=== PATIENT | male | born 1975 | race Caucasian/White ===

== ENCOUNTER 2024-10-16 07:49 | Emergency (ER) | payer SELFPAY ==
--- OUTSIDE RECORDS SUMMARY | 2024-10-16 07:55 | XMS_ITS | Encounter Summary ---
Author Organization [facility] Address [address] [place] [address] Care Team Providers Care Charge Weigher Name Role Phone Non-Staff, Physician Primary Care Provider Unava ilable Encounter Details Date Type Department Care Team (Late st Contact Info) Description 12/28/2005 Outpatient Historical [facility] Urgent Care- Heladio Stevensnn [place] [address] [place] [phone] Azeem Jones, ASSET PROTECTION REPRESENTATIVE [address] [place] [address] Unspecified Backache (Primary Dx); Sprain Lumbar Region Social History Tobacco Use Types Packs/Day Years Used Date Smoking Tobacco: Never Assessed Sex and Gender Information Value Date Recorded Sex Assigned at Not on file Legal Sex Male 4:49 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 Gender Identity Not on file Sexual Orientation Not on file documented as of this encounter Plan of Treatment Not on file documented as of this encounter Visit Diagnoses Diagnosis Backache, unspecified- Primary Sprain lumbar region Sprain of lumbar region documented in this encounter Additional Health Concerns Infection Onset Date Last Indicated Resolved Time MRSA Comment:Wound 12/23/14 11/09/2014 11/09/2014 documented as of this encounter Care Teams Charge Weigher Relationship Specialty Start Date End Date Non-Staff, Physician NO ADDRESS ON FILE PCP - General 01/09/12 documented as of this encounter
--- OUTSIDE RECORDS SUMMARY | 2024-10-16 07:55 | XMS_ITS | Encounter Summary ---
Author Organization [facility] Address [address] [place] [address] Care Team Providers Care Linux System Admin Name Role Phone Non-Staff, Physician Primary Care Provider Unava ilable Encounter Details Date Type Department Care Team (Latest Contact Info) Description 03/29/2006 Outpatient Historical [facility] Care [address] [place] [address] Alex Perrin MD [address] [place] [address] Unspecified Synovitis and Tenosynovitis (Primary Dx) Social History Tobacco Use Types Packs/Day Years Used Date Smoking Tobacco: Never Assessed Sex and Gender Information Value Date Recorded Sex Assigned at Not on file 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 Sex Male 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
--- OUTSIDE RECORDS SUMMARY | 2024-10-16 07:55 | XMS_ITS | Clinical Summary ---
Author Organization [facility] Address [address] [facility] Attn: Epic Prelude ADT SUMAN RODRIGUEZ [address] Care Team Providers Care Collections Curator Name Role Phone Unavailable Primary Care Provider Unavailabl e Allergies No known active allergies Medications ibuprofen (MOTRIN) 800 mg tablet Take 1 Tablet (800 mg) by mouth every 8 hours as needed for Pain. 15 Tablet 0 02/10/2016 Active acetaminophen (TYLENOL) 325 mg tablet Take 325 mg by mouth every 4 hours as needed. 12/30/2014 Active Active Problems Problem Noted Date Diagnosed Date MRSA (methicillin resistant staph aureus) cultur e positive 12/23/2014 Immunizations Immunization Administration Dates Next Due (ADACEL/BOOSTRIX)(10 YR UP) TDAP VACCINE, 0.5ML, IM 11/10/2014 Family History Medical History Relation Name Comments Healthy Brother 1 Healthy Brother 2 Healthy Father Healthy Mother Healthy Sister 1 Healthy Sister 2 Relation Name Status Comments Brother 1 Alive Brother 2 Alive Father Alive Mother Alive Sister 1 Alive Sister 2 Alive Social History Tobacco Use Types Packs/Day Years Used Date Smoking Tobacco: Every Day Cigarettes Last attempted to quit: 10/24/2011 Smokeless Tobacco: Never Tobacco Cessation:Ready to Q uit: Not Asked; Counseling Given: Not Answered Alcohol Use Standard Drinks/Week Comments No 0 (1 standard drink = 0.6 oz pur e alcohol) Sex and Gender Information Value Date Recorded Sex Assigned at Not on file Legal Sex Male 9:10 AM TORPEDO WORKER Gender Identity Not on file Sexual Orientation Not on file Last Filed Vital Signs Vital Sign Reading Time Taken Comments Blood Pressure 154/88 12/26/2021 1:07 PM CDT Pulse 82 03/22/2018 12:47 PM TORPEDO WORKER Temperature 36.7 C (98 F) 12/26/2021 1:07 PM CDT Respiratory Rate 18 12/26/2021 1:07 PM CDT Oxygen Saturation 99% 12/26/2021 1:07 PM CDT Inhaled Oxygen Concentration - - Weight 105.3 kg (232 lb 3.2 oz) 022 12:21 PM CDT Height 180.3 cm (5' 11 ) 12/26/2021 12: 21 PM CDT Body Mass Index 32.39 12/26/2021 12:21 PM CDT Plan of Treatment Health Maintenance Due Date Last Done Comments HEPATITIS B VACCINES (1 of 3 - 19+ 3-dose series) 07/13 COLORECTAL SCREENING 08/02/2019 Colorectal Cancer Screening 08/02/2019 FIT-DNA Q 3 years 08/02/2019 FIT/FOBT Q 1 year 08/02/2019 Flex Sig/CT Colonography Q 5 years 08/02/2019 ZOSTER VACCINE (1 of 2) 2024 DTAP/TDAP/TD VACCINES (2 - Td or Tdap) 11/10/2024 INFLUENZA VACCINE (#1) 2024
--- OUTSIDE RECORDS SUMMARY | 2024-10-16 07:55 | XMS_ITS | Encounter Summary ---
Author Organization [facility] Address [address] [place] [address] Care Team Providers Care Assistant To The Ceo Name Role Phone Non-Staff, Physician Primary Care Provider Unava ilable Encounter Details Date Type Department Care Team (Latest Contact Info) Description 01/19/2006 Outpatient Historical [facility] Care [facility] [address] [place] [address] Doyle Gastelum MD [address] [place] [id number] Acute Upper Respiratory Infections of Unspecified Site (Primary Dx) Social History Tobacco Use Types Packs/Day Years Used Date Smoking Tobacco: Never Assessed Sex and Gender Information Value Date Recorded Sex Assigned at Not on file Legal Sex Male 4:49 AM PEDIATRIC ONCOLOGIST Gender Identity Not on file Sexual Orientation Not on file documented as of this encounter Plan of Treatment Not on file documented as of this encounter Visit Diagnoses Diagnosis Acute upper respiratory infections of unspecified site- Primary documented in this encounter Additional Health Concerns Infection Onset Date Last Indicated Resolved Time MRSA Comment:Wound 12/23/14 11/09/2014 11/09/2014 documented as of this encounter Care Teams Assistant To The Ceo Relationship Specialty Start Date End Date Non-Staff, Physician NO ADDRESS ON FILE PCP - General 01/09/12 documented as of this encounter
--- OUTSIDE RECORDS SUMMARY | 2024-10-16 07:55 | XMS_ITS | Clinical Summary ---
Author Organization [facility] Address [address] [place] [address] Phone Care Team Providers Care Warehouse Material Handler Name Role Phone Non-Staff, Physician Primary Care Provider Unava ilable Allergies No known active allergies Medications acetaminophen (TYLENOL) 325 mg tablet Take 325 mg by mouth every 4 hours as needed. Active ibuprofen (MOTRIN) 800 mg tablet Take 1 Tablet (800 mg) by mouth every 8 hours as needed for Pain. 15 Tablet 0 02/10/2016 Active oxyCODONE-aceta minophen (Percocet) 5-325 mg tabletIndicatio ns:Cutaneous abscess of chest wall Take 1 Tablet by mouth every 4 hours as needed for Pain, Moderate. Max Daily Amount: 6 Tablets 2 Tablet 11/11/2019 Active Active Problems Problem Noted Date Diagnosed [...] Used Date Smoking Tobacco: Every Day Cigarettes 1 5 Started: 10/23/2006; Last attempted to quit: 10/24/2011 Smokeless Tobacco: Never Alcohol Use Standard Drinks/Week Comments No 0 (1 standard drink = 0.6 oz pur e alcohol) Sex and Gender Information Value Date Recorded Sex Assigned at Not on file Legal Sex Male 4:49 AM TONGUE CARRIER Gender Identity Not on file Sexual Orientation Not on file Occupation Industry Job Start Date Job End Date Not on file Not on file Not on file Not on file Last Filed Vital Signs Vital Sign Reading Time Taken Comments Blood Pressure 146/93 11/11/2019 12:29 AM CDT Pulse 82 03/22/2018 12:47 PM TONGUE CARRIER Temperature 36.5 C (97.7 F) 11/11/2019 12:29 AM CDT Respiratory Rate 20 11/11/2019 12:29 AM CDT Oxygen Saturation 95% 11/11/2019 12:29 AM CDT Inhaled Oxygen Concentration - - Weight 107 kg (236 lb) 11/10/2019 10:12 PM CDT Height 177.8 cm (5' 10 ) 11/10/2019 10:12 PM CDT Body Mass Index 33.86 11/10/2019 10:12 PM CDT Plan of Treatment Health Maintenance [...] or Tdap) 11/10/2024 INFLUENZA VACCINE (#1) 2024 Additional Health Concerns Infection Onset Date Last Indicated MRSA Comment:Wound 12/23/14 11/09/2014 11/09/2014 Care Teams Warehouse Material Handler Relationship Specialty Start Date End Date Non-Staff, Physician NO ADDRESS ON FILE PCP - General 01/09/12
--- OUTSIDE RECORDS SUMMARY | 2024-10-16 07:55 | XMS_ITS | Encounter Summary ---
Author Organization [facility] Address [address] [place] [address] Care Team Providers Care Assembly And Packing Supervisor Name Role Phone Non-Staff, Physician Primary Care Provider Unava ilable Encounter Details Date Type Department Care Team (Late st Contact Info) Description 09/19/2006 Outpatient Historical [facility] Urgent Care- Leija Cavalier Mchenry [address] [place] [address] Jason Patterson, MEN'S FURNISHINGS SALESPERSON [address] [address] Torticollis, Unspecified (Primary Dx); Other Affections of Shoulder Region, not Elsewhere Classified; Cervicalgia; Pain in Joint, Shoulder Region Social History Tobacco Use Types Packs/Day Years Used Date Smoking Tobacco: Never Assessed Sex and Gender Information Value Date Recorded Sex Assigned at Not on file Legal Sex Male 4:49 AM PRESS FEEDER Gender Identity Not on file Sexual Orientation Not on file documented as of this encounter Plan of Treatment Not on file documented as of this encounter Visit Diagnoses Diagnosis Torticollis, unspecified- Primary Other affections of shoulder region, not elsewhere classified Cervicalgia Pain in joint, shoulder region documented in this encounter Additional Health Concerns Infection Onset Date Last Indicated Resolved Time MRSA Comment:Wound 12/23/14 11/09/2014 11/09/2014 documented as of this encounter Care Teams Assembly And Packing Supervisor Relationship Specialty Start Date End Date Non-Staff, Physician NO ADDRESS ON FILE PCP - General 01/09/12 documented as of this encounter
--- OUTSIDE RECORDS SUMMARY | 2024-10-16 07:55 | XMS_ITS | Encounter Summary ---
Author Organization [facility] Address [address] [place] [address] Care Team Providers Care Electronics Scale Tester Name Role Phone Non-Staff, Physician Primary Care Provider Unava ilable Encounter Details Date Type Department Care Team (Latest Contact Info) Description 08/31/2006 Outpatient Historical [facility] Care [facility] [address] [place] [address] Laila Ramirez, RAILROAD SUPERVISOR OF ENGINES NO ADDRESS ON FILE Unspecified Backache (Primary Dx); Sprain of Neck Social History Tobacco Use Types Packs/Day Years Used Date Smoking Tobacco: Never Assessed Sex and Gender Information Value Date Recorded Sex Assigned at Not on file Legal Sex Male 4:49 AM PRESSER HAND Gender Identity Not on file Sexual Orientation Not on file documented as of this encounter Plan of Treatment Not on file documented as of this encounter Visit Diagnoses Diagnosis Backache, unspecified- Primary Sprain of neck Neck sprain and strain documented in this encounter Additional Health Concerns Infection Onset Date Last Indicated Resolved Time MRSA Comment:Wound 12/23/14 11/09/2014 11/09/2014 documented as of this encounter Care Teams Electronics Scale Tester Relationship Specialty Start Date End Date Non-Staff, Physician NO ADDRESS ON FILE PCP - General 01/09/12 documented as of this encounter
--- OUTSIDE RECORDS SUMMARY | 2024-10-16 07:55 | XMS_ITS | Encounter Summary ---
Author Organization [facility] Address [address] [place] [address] Care Team Providers Care Truck Operator Name Role Phone Non-Staff, Physician Primary Care Provider Unava ilable Encounter Details Date Type Department Care Team (Late st Contact Info) Description 07/17/2006 Outpatient Historical [facility] [address] [place] [address] Alex Perrin MD [address] [place] [address] Sprain of Neck (Primary Dx) Social History Tobacco Use Types Packs/Day Years Used Date Smoking Tobacco: Never Assessed Sex and Gender Information Value Date Recorded Sex Assigned at Not on file Legal Sex Male 4:49 AM CAFETERIA HELPER Gender Identity Not on file Sexual Orientation Not on file documented as of this encounter Plan of Treatment Not on file documented as of this encounter Visit Diagnoses Diagnosis Sprain of neck- Primary Neck sprain and strain documented in this encounter Additional Health Concerns Infection Onset Date Last Indicated Resolved Time MRSA Comment:Wound 12/23/14 11/09/2014 11/09/2014 documented as of this encounter Care Teams Truck Operator Relationship Specialty Start Date End Date Non-Staff, Physician NO ADDRESS ON FILE PCP - General 01/09/12 documented as of this encounter
--- OUTSIDE RECORDS SUMMARY | 2024-10-16 07:55 | XMS_ITS | Encounter Summary ---
Author Organization [facility] Address [address] [place] [address] Care Team Providers Care Gold Miner Name Role Phone Non-Staff, Physician Primary Care Provider Unava ilable Encounter Details Date Type Department Care Team (Latest Contact Info) Description 01/29/2006 Outpatient Historical [facility] Care [facility] [address] [place] [address] Doyle Gastelum MD [address] [place] [address] Sprain and Strain of Unspecified Site of Shoulder and Upper Arm (Primary Dx) Social History Tobacco Use Types Packs/Day Years Used Date Smoking Tobacco: Never Assessed Sex and Gender Information Value Date Recorded Sex Assigned at Not on file Legal Sex Male 4:49 AM 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
--- OUTSIDE RECORDS SUMMARY | 2024-10-16 07:55 | XMS_ITS | Encounter Summary ---
Author Organization [facility] Address [address] [place] [address] Care Team Providers Care Weight Control Lecturer Name Role Phone Non-Staff, Physician Primary Care Provider Unava ilable Encounter Details Date Type Department Care Team (Late st Contact Info) Description 09/19/2006 Outpatient Historical [facility] Imaging Services-Heladio Fatima Williams [address] [place] [address] Jason Patterson, FRAME RUNNER [address] [address] Cervicalgia (Primary Dx) Social History Tobacco Use Types Packs/Day Years Used Date Smoking Tobacco: Never Assessed Sex and Gender Information Value Date Recorded Sex Assigned at Not on file Legal Sex Male 4:49 AM ACUTE CARE SURGEON Gender Identity Not on file Sexual Orientation Not on file documented as of this encounter Plan of Treatment Not on file documented as of this encounter Visit Diagnoses Diagnosis Cervicalgia- Primary documented in this encounter Additional Health Concerns Infection Onset Date Last Indicated Resolved Time MRSA Comment:Wound 12/23/14 11/09/2014 11/09/2014 documented as of this encounter Care Teams Weight Control Lecturer Relationship Specialty Start Date End Date Non-Staff, Physician NO ADDRESS ON FILE PCP - General 01/09/12 documented as of this encounter
--- OUTSIDE RECORDS SUMMARY | 2024-10-16 07:55 | XMS_ITS | Encounter Summary ---
Author Organization [facility] Address [address] [place] [address] Care Team Providers Care Plant Worker Name Role Phone Non-Staff, Physician Primary Care Provider Unava ilable Encounter Details Date Type Department Care Team (Late st Contact Info) Description 01/24/2007 Outpatient Historical [facility] [address] [place] [address] [place] [address] Alex Perrin MD [address] [place] [address] Pain in Joint, Shoulder Region (Primary Dx) Social History Tobacco Use Types Packs/Day Years Used Date Smoking Tobacco: Never Assessed Sex and Gender Information Value Date Recorded Sex Assigned at Not on file Legal Sex Male 4:49 AM LIMEROCK TOWER LOADER Gender Identity Not on file Sexual Orientation Not on file documented as of this encounter Plan of Treatment Not on file documented as of this encounter Visit Diagnoses Diagnosis Pain in joint, shoulder region- Primary documented in this encounter Additional Health Concerns Infection Onset Date Last Indicated Resolved Time MRSA Comment:Wound 12/23/14 11/09/2014 11/09/2014 documented as of this encounter Care Teams Plant Worker Relationship Specialty Start Date End Date Non-Staff, Physician NO ADDRESS ON FILE PCP - General 01/09/12 documented as of this encounter
[2024-10-16 07:56] VITALS: BP 132/82; PULSE 97; RESP 17; TEMP 37; O2SAT 99; BMI 33.0
--- NOTE | 2024-10-16 07:58 | XRR_ITS ---
PROCEDURE INFORMATION: Exam: XR Right Hip Exam date and time: 10/16/2024 8:06 AM Age: 49 years old Clinical indication: Pain and injury or trauma; Other: Twisting injury; Sprain or strain; Hip pain; Right hip TECHNIQUE: Imaging protocol: Radiologic exam of the right hip. Views: 1 view hip with pelvis when performed. COMPARISON: No relevant prior studies available. FINDINGS: Bones/joints: Unremarkable. No acute fracture. No significant arthritic changes. No lytic or sclerotic bone lesions Soft tissues: Unremarkable. XR/XR hip RT 2-3V wo/w pel* [id number] IMPRESSION: No acute findings.
--- NOTE | 2024-10-16 08:11 | W.ED.EXTPRO ---
HPI - Extremity Problem General: Chief complaint: Extremity Injury, Lower Stated complaint: rt leg inj Time Seen by Provider: 10/16/24 07:58 History of Present Illness: 49-year-old male presents emergency room complaining of right hip pain. 2 [place] some rocks he twisted it caught in a current sweats little further most of the force get directed to his hip. He said it felt sore for a while after this happened but then the rest of the day he was able to get around okay the following day early in the day he did not notice any problem but as the day progressed he had more more symptoms to the point where this morning when he woke up he has a difficult time even walking. No previous injury to the hip he did not fall there is no direct impact to the hip. No previous surgeries on this hip. Associated symptoms: Deny chest pain, fever(s) or rash Related Data Previous Rx's ?Medication ?Instructions ?Recorded hydrocodone 5 mg-acetaminophen 325 1 tab PO Q6H PRN pain #10 tabs 10/16/24 mg tablet methylprednisolone 4 mg tablets in See Rx Instructions PO .COMPLEX 10/16/24 a dose pack (Medrol (Deangelo)) #21 ea Allergies Allergy/AdvReac Type Severity Reaction Status Date / Time No Known Allergies Allergy Verified 10/16/24 07:59 Review of Systems Const: Denies: fever(s) or chills Card: Denies: chest pain Resp: Denies: dyspnea GI: Denies: abdominal pain : Denies: dysuria, urinary frequency or urinary urgency Musc: Denies: neck pain or back pain Skin/Breast: Denies: rash Physical Exam Const: COMMON NORMALS: no acute distress GENERAL APPEARANCE: cooperative and comfortable ORIENTATION/CONSCIOUSNESS: Yes awake, Yes oriented to person, Yes oriented to place and Yes oriented to time HENMT: COMMON NORMALS: normocephalic, atraumatic and hearing grossly normal bilaterally HEAD & SCALP: normocephalic and atraumatic Resp: COMMON NORMALS: normal respiratory effort, No retractions, No use of accessory muscles and clear to auscultation bilaterally AUSCULTATION: clear to auscultation bilaterally Cardio: COMMON NORMALS: regular rate, regular rhythm and No murmurs present (Cardio) RATE: regular rate RHYTHM: regular rhythm Extremity: COMMON NORMALS: normal to inspection, capillary refill normal, no clubbing, cyanosis or edema, no calf tenderness and no pedal edema Neuro: SENSORIUM/ORIENTATION: Yes oriented to person, Yes oriented to place and Yes oriented to time OTHER: Neurovascular intact lower extremities bilaterally strength 5/5 with dorsi and plantarflexion. Sensation normal difficult to elicit deep tendon reflexes patellar tendon Skin: COMMON NORMALS: no rashes or lesions noted GENERAL SKIN EXAM: no rashes or lesions noted Course Vital Signs: Vital signs: Vital Signs Temperature 98.6 F 10/16/24 07:56 Pulse Rate 97 10/16/24 07:56 Respiratory Rate 17 10/16/24 07:56 Blood Pressure 132/82 10/16/24 07:56 Pulse Oximetry 99 10/16/24 07:56 Oxygen Delivery Me thod Room Air 10/16/24 07:56 MDM - Extremity (Nontraumatic) Medical Decision Making Patient plain x-rays question of some irregularity on the edge of the acetabulum superiorly. He is unable to stand and bear weight on it we went ahead and did a CT shows a joint effusion in the right hip but no fractures. I think he probably sprained it he may have an impingement sign. Steroid given pain medications given nonweightbearing on crutches and referred to orthopedics Medical Records I reviewed the patient's medical records. Lab Data I reviewed the patient's lab results. Radiology Impressions Hip/Pelvis X-Ray 10/16/24 07:58 IMPRESSION: No acute findings. Hip CT 10/16/24 08:35 IMPRESSION: Hip effusion. Cyst in the superior and lateral acetabulum. All radiology interpretation(s) finalized by discharge Discharge Plan Discharge Patient Disposition: Home Clinical Impression: Sprain of right hip Condition: Stable Prescriptions: New hydrocodone-acetaminophen 5-325 mg tablet 1 tab PO Q6H PRN (Reason: pain) Qty: 10 0RF methylprednisolone [Medrol (Deangelo)] 4 mg tablets,dose pack See Rx Instructions .ROUTE .COMPLEX Qty: 21 0RF Rx Instructions: orally per package directions Discharge Orders: Discharge ED (Routine); Ordered 10/16/24 Ordered By: Modesto Wadsworth Discharge Diet: Usual diet Discharge Activity: Limit activity as instructed Patient Instructions: Opioid Safety, Pain Management, Patient Portal & Andra Instructions Activity Restrictions/Additional Instructions: Thank you for choosing [facility] for your healthcare needs today. It is very important that you follow up as instructed or that you return to the Emergency Department should you have concerns or if your condition changes or worsens in any way. You were seen in the emergency room with complaints of right hip pain. X-ray did not show any fractures CT shows a joint effusion. This is likely from the sprain we will put you on steroids give you pain medications to use as well as crutches recommend nonweightbearing for 1 to 2 days will have you follow-up with the orthopedic clinic manager of merchandising will make arrangements for the follow-up. Print Language: Tajik Coding Level of Care Code ED Installer Technician for Pham Chappell
--- NOTE | 2024-10-16 08:35 | CTR_ITS ---
PROCEDURE INFORMATION: Exam: CT Right Lower Extremity Without Contrast, Hip Exam date and time: 10/16/2024 8:59 AM Age: 49 years old Clinical indication: Pain and injury or trauma; Other: Twisting injury; Sprain or strain; Hip; Right; Additional info: ? Acetabular lip fracture on plain film TECHNIQUE: Imaging protocol: CT of the right lower extremity without contrast was performed. Exam focused on the hip. Radiation optimization: All CT scans at this facility use at least one of these dose optimization techniques: automated exposure control; mA and/or kV adjustment per patient size (includes targeted exams where dose is matched to clinical indication); or iterative reconstruction. COMPARISON: CR (PELVIS, ) 10/16/2024 8:06 AM RADIATION DOSE METRICS: Total DLP (mGy-cm): 407.83 FINDINGS: Bones/joints: A small cyst is present in the superior and lateral acetabulum. No associated fracture is observed. Mild articular surface narrowing and spurring. Fluid within the joint. No lytic or sclerotic bone lesion. Soft tissues: Normal. CT/CT hip RT wo con* [id number] IMPRESSION: Hip effusion. Cyst in the superior and lateral acetabulum.
--- NOTE | 2024-10-17 09:34 | DCPLANNER ---
messaged ortho for er f/u
== END 2024-10-16 09:46 | disposition home or self-care (01) ==
PROVIDERS: Emergency Provider Family Medicine
DX: S73.101A Unspecified sprain of right hip, initial encounter (principal); X58.XXXA Exposure to other specified factors, initial encounter
CPT/HCPCS: 73502; 73700; 96372; 99284; J1885